=== PATIENT | female | born 1935 | race African-American/Black ===

== ENCOUNTER 2018-05-12 17:06 | Inpatient (IN) | payer MEDICARE, OTHER, MEDICAID ==
[2018-05-12] MEDS ORDERED: Magnesium 2 GM/NS 0.9% 100 ML 2 GM in Premix Bag 1 BAG IVPB SCH (18:15)
[2018-05-12 18:49] LABS: Bilirubin Negative (Negative); Blood, Urine Negative (Negative); Clarity CLEAR (Clear); Glucose, Urine (Dipstick) Negative (Negative); Leukocyte Negative (Negative); Nitrite Negative (Negative); Protein, Urine (Dipstick) Negative (Neg-Trace); Specific Gravity, Urine 1.008 (1.002-1.036); Urobilinogen 0.2 mg/dL (0.2-1.0); pH, Urine 6.5 (5.0-9.0)
--- NOTE | 2018-05-12 19:45 | RAD ---
ONE VIEW PELVIS: HISTORY: Pain. COMPARISON: None. FINDINGS: Limited evaluation of the sacral ala. Grossly, the sacral ala are intact. The sacroiliac joints are patent and symmetric. The bony pelvis is intact. Moderate bilateral degenerative changes of the hi ps. The contour of both femoral heads is maintained on this single projection. IMPRESSION: Unremarkable anterior-posterior pelvic radiograph. POS: PPP
--- NOTE | 2018-05-12 19:46 | RAD ---
RIGHT HIP TWO VIEWS: HISTORY: Pain. COMPARISON: None. FINDINGS: Mild degenerative change in the hip joint space. The contour of the femoral head is maintained. No fracture. There is diffuse bone demineralization. IMPRESSION: Unremarkable two views right hip. POS: PPP
[2018-05-12] MEDS ORDERED: Diltiazem 125 MG in Sodium Chloride 0.9% 100 ML IVPB SCH (20:15)
[2018-05-12] MEDS ORDERED: Ondansetron ODT 4 MG TAB SL PRN (23:07)
[2018-05-12] MEDS ORDERED: Sodium Chloride 0.9% 1,000 ML IV SCH (23:07)
[2018-05-12] MEDS ORDERED: Ondansetron HCl/PF 4 MG/2 ML Vial IVP PRN (23:07)
[2018-05-13 01:39] VITALS: BMI 27.2
[2018-05-13] MEDS ORDERED: Aspirin 325 mg Enteric Coated Tablet PO SCH (06:00)
[2018-05-13] MEDS ORDERED: Atropine Sulfate 1 mg/1 ml Vial IVP PRN (08:05)
[2018-05-13 08:59] LABS: Anion Gap 13 mmol/L (10-20); BUN (Urea Nitrogen) 15 mg/dL (9.8-20.1); Calc. Creatinine Clearance 38 mL/min (70-130); Calcium 9.3 mg/dL (7.8-10.44); Carbon Dioxide 23 mmol/L (23-31); Chloride 107 mmol/L (98-107); Estimated GFR-MDRD 43; Glucose 109 mg/dL (83-110); Magnesium 2.9 mg/dL (1.6-2.6); Phosphorus 2.9 mg/dL (2.3-4.7); Potassium 4.3 mmol/L (3.5-5.1); Sodium 139 mmol/L (136-145)
[2018-05-13] MEDS ORDERED: Prevnar 13-Val Conj/PF 0.5 ML SYRINGE IM ONE (09:00)
[2018-05-13] MEDS ORDERED: Ondansetron ODT 4 MG TAB PO PRN (09:58)
[2018-05-13] MEDS ORDERED: Nitroglycerin 0.4 MG TAB (25 Tab Bottle) PO PRN (09:58)
[2018-05-13] MEDS ORDERED: Ondansetron HCl/PF 4 MG/2 ML Vial IVP PRN (09:58)
[2018-05-13] MEDS ORDERED: Acetaminophen 325 MG TAB PO PRN (09:58)
[2018-05-13] MEDS ORDERED: Calcium Carbonate 500 MG ChewTAB PO PRN (09:58)
[2018-05-13] MEDS ORDERED: Milk Of Magnesia 30 ML UDCUP PO PRN (09:58)
[2018-05-13] MEDS ORDERED: hydrALAZINE 20 MG/ML VIAL SLOW IVP PRN (10:03)
[2018-05-13] MEDS ORDERED: HYDROcodone/Acetaminophen 5/325 mg Tablet PO PRN (10:03)
--- NOTE | 2018-05-13 10:10 | HP ---
DATE OF ADMISSION: 05/13/2018 PRIMARY CARE PHYSICIAN: Dr. Landry. CHIEF COMPLAINT: Right hip pain. HISTORY OF PRESENT ILLNESS: The patient is an 82-year-old -[place] female with hypertension, hyperlipidemia, coronary artery disease, status post CABG and dementia who presented to the emergenc y room at [facility] with right hip pain. Her workup in the emergency room was consistent with atrial fibrillation with rapid ventricular response. She was started on Lovenox as well as Cardizem drip. She was transferred to this facility for hospital admission. Due to underlying dementia, not much information is available from the patient. The patient thinks t hat she is still at home and is waiting for one of the family members to take her to the physician. She denies any complaints at this time. Right hip pain is resolved. She is asking for hydrocodone. PAST MEDICAL HISTORY: 1. Chronic pain syndrome. 2. Sick sinus syndrome. 3. Coronary artery disease, status post CABG in 1999. 4. Hypertension. 5. Hyperlipidemia. 6. Degenerative joint disease. 7. Depression. 8. Dementia. PAST SURGICAL HISTORY: 1. Hysterectomy. 2. Coronary artery bypass grafting. 3. Bladder repair. 4. Knee surgery. ALLERGIES: The patient is allergic to DARVOCET and VALSARTAN. CURRENT HOME MEDICATIONS: Per [employer], gabapentin 300 mg daily, hydralazine 10 mg b.i.d., [place] as needed, lisinopril 20 mg daily, Namenda 5 mg at bedtime. SOCIAL HISTORY: She currently lives at home. It is unclear who she lives with. She will remain a f ull code. We discussed with the surrogate decision maker about her code status. According to the fa ce sheet, Maggie Huertas is the DPOA. FAMILY HISTORY AND REVIEW OF SYSTEMS: Cannot be reliably obtained from the patient due to current co gnitive status. PHYSICAL EXAMINATION: VITAL SIGNS: At [facility], temperature 98.5, respiration 16, pulse rate of 159, blood pressure of 143 /117 with O2 saturation 97% on room air. GENERAL: An 82-year-old female in no apparent distress. Denies any chest discomfort at this time. HEENT: Head is atraumatic, normocephalic. Sclerae are anicteric. Moist mucous membrane, no oral le cruzito. NECK: Supple, no JVD, no carotid bruit. LUNGS: Clear to auscultation bilaterally. HEART: S1, S2 present. Irregularly irregular, 2/6 systolic murmur over the mitral area. No heaves or pulsation. ABDOMEN: Soft, nontender, bowel sounds present. EXTREMITIES: No edema or calf tenderness. SKIN: Warm and dry. LYMPH NODES: No palpable lymph nodes in the neck. NEUROLOGIC: The patient is spontaneously moving all 4 extremities and follows commands to some exten t. PSYCHIATRY: As discussed above. MUSCULOSKELETAL: No joint swelling or tenderness appreciated. LABORATORY DATA AND X-RAY FINDINGS: CBC showed WBC 6.4 with hemoglobin 11.6, hematocrit 35.6, platel et 341. Chemistry showed sodium 139, potassium 4.3, chloride 107, bicarbonate 23, BUN 15, creatinine 1.41. Magnesium of 2.5. Troponin was negative. BNP 65.5. X-ray of the hip was negative. Chest x -ray by my review was negative for infiltrate. EKG by my review showed atrial fibrillation with rapi d ventricular response, left axis deviation, left ventricular hypertrophy and nonspecific ST-T wave c hanges. IMPRESSION: 1. Atrial fibrillation with rapid ventricular response. Patient is currently off Cardizem drip due to significant bradycardia and sinus pause. Troponin is pending at this time. The patient will be k ept n.p.o. We will consult Cardiology. We will continue anticoagulation due to elevated CHADS2 scor e. The patient is at high risk of fall. 2. Right hip pain after a recent fall. We will try to obtain more information from the family. 3. Coronary artery disease, status post coronary artery bypass graft in the year 1999. We will add low dose aspirin. 4. Chronic pain syndrome. We will resume her home pain regimen. 5. Dementia. We will continue memantine. 6. Hypertension. We will continue lisinopril. 7. Chronic kidney disease stage 3. 8. Hyperlipidemia. Plan of care was discussed with the patient. We will try to call the family.
[2018-05-13 10:53] LABS: Troponin I Less than 0.010 ng/mL (< 0.028)
[2018-05-13] MEDS ORDERED: Aspirin 81 mg Enteric Coated Tablet PO SCH (11:00)
[2018-05-13] MEDS ORDERED: Gabapentin 300 MG CAP PO SCH (11:00)
[2018-05-13] MEDS: Sodium Chloride 0.9% 1,000 ML IV SCH (11:04)
--- NOTE | 2018-05-13 14:23 | CON ---
DATE OF CONSULTATION: 05/13/2018 CARDIOLOGY CONSULTATION NOTE INDICATION FOR CONSULTATION: An 82-year-old female with a history of new onset atrial fibrillation. However, she has had a history of atrial fibrillation in the past. HISTORY OF PRESENT ILLNESS: This is a very unfortunate 82-year-old female who still lives by herself , was at home and fell and had some pain to the right hip. She was taken to the hospital, the emerge ncy room and apparently there was no fracture, but she was found to have atrial fibrillation with rap id ventricular response. She was asymptomatic from a cardiac standpoint, but did notice that the hea rt was beating somewhat faster. She actually still maintains herself at home when she takes care of her horses. She is able to get around, but does have significant arthritis. She has had history of coronary artery disease in the past. She underwent bypass surgery in 1999 with MERIDA to left anterior descending artery, diagonal sequential graft and saphenous vein graft to the posterior lateral branc h and posterior descending arteries of the right coronary artery. Her last visit in the office was i n 2014 in April, this has been 3 years ago. At that time, she did not have any significant compl aints. She has had a negative stress test since her bypass surgery and otherwise has been doing rela tively well after her bypass. She does have a history also of some hypertension and dyslipidemia. T here is some mention in the old records that she does have some occasional atrial fibrillation and th is has been asymptomatic. At this time, she denied any chest pain. She does have occasional shortne ss of breath she says, but otherwise denies any other cardiac complaints. [facility] from atrial fibrillation after being given diltiazem. She did have an IV drip. She then converted to sinus rhythm. She also then developed pauses. She has had up to 3.7 second p ause. She has also been intermittently with some tachycardia, heart rate in the 160s. At this time, she is stable and remains in a sinus rhythm with heart rates in the 60s. Most likely, she has sick sinus syndrome and may need to undergo pacemaker insertion due to the pauses associated with the dilt iazem and the tachycardia associated with the atrial fibrillation. PAST MEDICAL HISTORY: Significant for coronary artery disease, hypertension, and dyslipidemia. She has had bypass surgery. She has a history of chronic renal insufficiency, hypercholesterolemia. She has obesity, arthritis. She has had left knee surgery, hysterectomy as well as her bypass surgery. ALLERGIES: She is allergic to PROPOXYPHENE. FAMILY HISTORY: Noncontributory. SOCIAL HISTORY: She lives alone. She has no alcohol or tobacco abuse. MEDICATIONS: At this time include Zofran, Tylenol, Neurontin, Lovenox 60 mg b.i.d., Colace, Milk of Magnesia, Namenda. She is on hydralazine as needed, nitroglycerin p.r.n., aspirin 81 mg a day. She is on pain medications, hydrocodone/acetaminophen. At home, she had been taking hydralazine, gabapen tin, hydrocodone/acetaminophen, lisinopril 20 mg once a day and memantine 5 mg q.p.m. REVIEW OF SYSTEMS: A 12 point review of systems unremarkable except what was noted in the history of present illness despite having arthritis and being able to still get around, she is doing remarkably well for 82 years old, but has now complained of some shortness of breath and occasionally she does feel the palpitations. PHYSICAL EXAMINATION: GENERAL: Reveals well-developed, well-nourished, elderly female who is actually in no acute distress at this time. She is alert and oriented. VITAL SIGNS: Stable. Her heart rate has been fluctuating between 40s to 80s, blood pressure 104/78, respiratory rate is about 16-18. She is afebrile. HEENT: Shows the head to be normocephalic and atraumatic. Carotid pulses are present. There were n o bruits. There is no JVD. The thyroid is not enlarged. Oral mucosa was pink and moist. CHEST: Clear to auscultation without any rales, rhonchi or wheezing. CARDIOVASCULAR: Exam reveals at this time a regular rate and rhythm with normal S1, S2. There are n o significant murmurs, heaves, thrills, bruits or rubs. She does have a very soft systolic murmur of the aortic area, most likely compatible with some aortic valve sclerosis. She has a well-healed mid line surgical incision after median sternotomy for her bypass surgery. ABDOMEN: Shows obesity with positive bowel sounds. No organomegaly, masses or tenderness are noted. EXTREMITIES: Showed no clubbing, cyanosis or edema. Femoral pulses are present. Pedal pulses are d ifficult to palpate. Popliteal pulses are slightly diminished. NEUROLOGIC: She appears to be fully intact with normal strength and normal tone for someone of her a ge. SKIN: Warm and dry. IMAGING DATA AND LABORATORY DATA: Her EKG originally showed atrial fibrillation with rapid ventricul ar response, but no acute ST segment changes that would indicate myocardial ischemia. She does have some evidence of left ventricular hypertrophy. She has decreased R-wave progression in V1 through V3 , which may be associated with her hypertension and left ventricular hypertrophy. Her laboratory lesley a shows creatinine of 1.41. Sodium was 139, potassium 4.3. Troponin I is negative. Hemoglobin is 1 1.6, WBC of 6.4. IMPRESSION: 1. Atrial fibrillation with associated bradycardia and tachycardia. This is a picture of sick sinus syndrome. She may need to undergo pacemaker insertion. I will discuss this with her later today in order that we can give her medications to prevent the atrial fibrillation also to decrease the heart rate and this most likely will be the best solution given her age and we will obtain an echocardiogr am, but previously she has had a normal ejection fraction. 2. History of coronary artery disease. She has had bypass surgery. This appears to be very stable. 3. Hypertension. This is under good control at this time. 4. Significant arthritis. This will be dealt with by the primary service. 5. Mild anemia. Most likely this is anemia of chronic disease and due to her aging process. 6. Chronic kidney disease. This is stable at this time. We would be more than happy to follow the patient with you, but most likely she will need to undergo pacemaker insertion.
[2018-05-13] MEDS: Docusate 100 MG CAP PO SCH (21:04)
[2018-05-13] MEDS: Famotidine 20 MG TAB PO SCH (21:05)
[2018-05-13] MEDS: Enoxaparin Sodium 60 MG/0.6 ML SYRINGE SC SCH (21:05)
[2018-05-14] MEDS: Sodium Chloride 0.9% 1,000 ML IV SCH ×2 (03:27→17:33)
[2018-05-14 05:58] LABS: #Eosinphils 0.4 thou/uL (0.0-0.7); #Lymphocytes 1.9 thou/uL (1.20-3.40); #Monocytes 0.4 thou/uL (0.11-0.59); #Neutrophils 2.8 thou/uL (1.40-6.50); %Basophils 0.6 % (0.0-1.0); %Eosinophils 6.4 % (0.0-10.0); %Lymphocytes 35.3 % (21.0-51.0); %Monocytes 7.6 % (0.0-10.0); %Neutrophils 50.1 % (42.0-75.0); Hemoglobin 11.1 g/dL (12.0-16.0); Mean Corpuscular HGB CONC 32.5 g/dL (32.0-36.0); Mean Corpuscular Hemoglobin 30.8 pg (27.0-31.0); Mean Corpuscular Volume 94.9 fL (78.0-98.0); Mean Platelet Volume 8.4 fL (7.4-10.4); Platelet Count 281 thou/uL (130-400); RBC Distribution Width 11.9 % (11.5-14.5); White Blood Cell (WBC) Count 5.5 thou/uL (4.8-10.8)
[2018-05-14 06:13] LABS: Anion Gap 11 mmol/L (10-20); BUN (Urea Nitrogen) 17 mg/dL (9.8-20.1); Calc. Creatinine Clearance 36 mL/min (70-130); Calcium 8.9 mg/dL (7.8-10.44); Carbon Dioxide 22 mmol/L (23-31); Chloride 108 mmol/L (98-107); Estimated GFR-MDRD 40; Glucose 90 mg/dL (83-110); Potassium 4.3 mmol/L (3.5-5.1); Sodium 137 mmol/L (136-145)
[2018-05-14] MEDS ORDERED: Aspirin 325 MG TAB PO SCH (09:00)
[2018-05-14] MEDS: Aspirin 81 mg Enteric Coated Tablet PO SCH (09:44)
[2018-05-14] MEDS: Docusate 100 MG CAP PO SCH ×2 (09:44→22:33)
[2018-05-14] MEDS: Enoxaparin Sodium 60 MG/0.6 ML SYRINGE SC SCH ×2 (09:45→18:16)
[2018-05-14] MEDS: Gabapentin 300 MG CAP PO SCH (09:45)
[2018-05-14] MEDS: Lisinopril 20 MG TAB PO SCH (09:46)
--- NOTE | 2018-05-14 11:51 | PDOC.PN ---
- Subjective Encounter Start Date: 05/14/18 Encounter Start Time: 11:49 Subjective: feels well. no chest pain?discomfort - Objective Resuscitation Status: Resuscitation Status FULL:Full Resuscitation MAR Reviewed: Yes Vital Signs & Weight: Vital Signs (12 hours) Temp Pulse Resp BP BP Pulse Ox 05/14/18 11:36 98.4 F 59 L 18 126/66 98 05/14/18 09:46 142/83 H 05/14/18 08:00 98.7 F 61 18 114/69 97 05/14/18 07:50 97 05/14/18 04:00 97.9 F 74 19 121/66 94 L 05/14/18 01:15 98.3 F 52 L 19 101/49 L 96 Weight Weight 168 lb 14.4 oz I&O: 05/13/18 05/14/18 05/15/18 06:59 06:59 06:59 Intake Total 240 Balance 240 Result Diagrams: 05/14/18 05:40 05/14/18 05:40 Additional Labs: Selected Entries 05/13/18 05/14/18 05/14/18 20:00 01:15 04:00 Pulse Rate 64 52 L 74 05/14/18 08:00 Pulse Rate 61 Laboratory Tests 02/03/18 04/19/18 05/12/18 22:06 12:45 14:28 Creatinine 1.24 H 1.37 H 1.36 H Troponin I TSH 3rd Generation 05/12/18 05/13/18 05/13/18 18:17 08:29 08:29 Creatinine 1.41 H Troponin I Less than 0.010 [facility] 3rd Generation [id number] 05/14/18 05:40 Creatinine 1.50 H Troponin I [facility] 3rd Generation Phys Exam - Physical Examination Constitutional: NAD HEENT: PERRLA, moist MMs, sclera anicteric, oral pharynx no lesions Neck: no nodes, no JVD, supple, full ROM Respiratory: no wheezing, no rales, no rhonchi, clear to auscultation bilateral Cardiovascular: RRR, no significant murmur, no rub Gastrointestinal: soft, non-tender, no distention, positive bowel sounds Musculoskeletal: no edema, pulses present Neurological: non-focal, normal sensation, moves all 4 limbs Psychiatric: normal affect, A&O x 3 Skin: no rash Dx/Plan (1) Sick sinus syndrome Code(s): I49.5 - SICK SINUS SYNDROME Status: Acute (2) CAD (coronary artery disease) Code(s): I25.10 - ATHSCL HEART DISEASE OF [place] CORONARY ARTERY W/O ANG PCTRS Status: Chronic (3) CKD (chronic kidney disease) stage 2, GFR 60-89 ml/min Code(s): N18.2 - CHRONIC KIDNEY DISEASE, STAGE 2 (MILD) Status: Chronic (4) HTN (hypertension) Code(s): I10 - ESSENTIAL (PRIMARY) HYPERTENSION Status: Chronic (5) HLD (hyperlipidemia) Code(s): E78.5 - HYPERLIPIDEMIA, UNSPECIFIED Status: Chronic (6) Arthritis Code(s): M19.90 - UNSPECIFIED OSTEOARTHRITIS, UNSPECIFIED SITE Status: Chronic (7) Chronic pain syndrome Code(s): G89.4 - CHRONIC PAIN SYNDROME Status: Chronic (8) Dementia Code(s): F03.90 - UNSPECIFIED DEMENTIA WITHOUT BEHAVIORAL DISTURBANCE Status: Chronic - Plan DVT proph w/SCDs PPM today> -: cont meds as below. HD stable. -: plan discussed w son at bedside -: Pt has impaired ADL/IDl and is fall risk.Impaired mobility -: Lives w family to assist.Will arrange wheelchair-clinically indicated * .She has walker but unable to use it due to advanced dementia ,severe de- conditioning and chronic pain. Review of Systems - Review of Systems Constitutional: negative: fever, chills, sweats, weakness, malaise, other ENT: negative: Ear Pain, Ear Discharge, Nose Pain, Nose Discharge, Nose Congestion, Mouth Pain, Mouth Swelling, Throat Pain, Throat Swelling, Other Respiratory: negative: Cough, Dry, Shortness of Breath, Hemoptysis, SOB with Excertion, Pleuritic Pain, Sputum, Wheezing Cardiovascular: negative: chest pain, palpitations, orthopnea, paroxysmal nocturnal dyspnea, edema, light headedness, other Gastrointestinal: negative: Nausea, Vomiting, Abdominal Pain, Diarrhea, Constipation, Melena, Hematochezia, Other Musculoskeletal: negative: Neck Pain, Shoulder Pain, Arm Pain, Back Pain, Hand Pain, Leg Pain, Foot Pain, Other Skin: negative: Rash, Lesions, Charlie, Bruising, Other Neurological: negative: Weakness, Numbness, Incoordination, Change in Speech, Confusion, Seizures, Other - Medications/Allergies Allergies/Adverse Reactions: Allergies Allergy/AdvReac Type Severity Reaction Status Date / Time propoxyphene Allergy Verified 05/13/18 02:44 valsartan Allergy Verified 05/13/18 02:44 Medications: Current Medications Acetaminophen (Tylenol) 650 mg PO Q4H PRN PRN Reason: Headache/Fever or Pain Last Admin: 05/13/18 16:38 Dose: 650 mg Aspirin (Ecotrin) 81 mg PO DAILY [facility] Last Admin: 05/14/18 09:44 Dose: 81 mg Atropine Sulfate (Atropine) 0.5 mg IVP ASDIR PRN PRN Reason: Sustained Bradycardia HR <30 Calcium Carbonate (Tums) 1,000 mg PO Q4H PRN PRN Reason: Heartburn or Indigestion Docusate Sodium (Colace) 100 mg PO BID [facility] Last Admin: 05/14/18 09:44 Dose: 100 mg Enoxaparin Sodium (Lovenox) 60 mg SC 0900,2100 [facility] Last Admin: 05/14/18 09:45 Dose: 60 mg Famotidine (Pepcid) 20 mg PO QPM [facility] Last Admin: 05/13/18 21:05 Dose: 20 mg Gabapentin (Neurontin) 300 mg PO DAILY [facility] Last Admin: 05/14/18 09:45 Dose: 300 mg Hydralazine HCl (Apresoline) 5 mg SLOW IVP Q4H PRN PRN Reason: SBP Greater Than 180 Sodium Chloride (Normal Saline 0.9%) 1,000 mls @ 70 mls/hr IV .[id number] [facility] Last Admin: 05/14/18 03:27 Dose: 1,000 mls Lisinopril (Zestril) 20 mg PO DAILY [facility] Last Admin: 05/14/18 09:46 Dose: 20 mg Magnesium Hydroxide (Milk Of Magnesium) 30 ml PO DAILYPRN PRN PRN Reason: Constipation Memantine (Namenda) 5 mg PO HS [facility] Last Admin: 05/13/18 21:05 Dose: 5 mg Nitroglycerin (Nitrostat) 0.4 mg PO Q5MIN PRN PRN Reason: Chest Pain Ondansetron HCl (Zofran Odt) 4 mg PO Q6H PRN PRN Reason: Nausea/Vomiting Ondansetron HCl (Zofran) 4 mg IVP Q6H PRN PRN Reason: Nausea/Vomiting Sodium Chloride (Flush - Normal Saline) 10 ml IVF Q12HR ANMOL Sodium Chloride (Flush - Normal Saline) 10 ml IVF PRN PRN PRN Reason: Saline Flush
[2018-05-14] MEDS: HYDROcodone/Acetaminophen 5/325 mg Tablet PO PRN (14:44)
[2018-05-14] MEDS: Famotidine 20 MG TAB PO SCH (22:33)
[2018-05-15] MEDS: Sodium Chloride 0.9% 1,000 ML IV SCH (06:57)
[2018-05-15] MEDS ORDERED: Lidocaine 1% (PF) 30 ML VIAL ONE (08:23)
[2018-05-15] MEDS ORDERED: Gentamicin 80 MG/2 ML VIAL ONE (08:23)
[2018-05-15] MEDS ORDERED: CEFAZOLIN 1 GM VIAL ONE (08:23)
[2018-05-15] MEDS ORDERED: CEFAZOLIN/Water 2 GM/20 ML SYRINGE ONE (08:23)
[2018-05-15] MEDS ORDERED: Midazolam HCl 2 mg/2 ml Vial ONE (09:25)
[2018-05-15] MEDS: Docusate 100 MG CAP PO SCH ×2 (10:57→21:40)
[2018-05-15] MEDS: Gabapentin 300 MG CAP PO SCH (10:57)
[2018-05-15] MEDS: Lisinopril 20 MG TAB PO SCH (10:57)
[2018-05-15] MEDS: Aspirin 81 mg Enteric Coated Tablet PO SCH (10:57)
[2018-05-15] MEDS: HYDROcodone/Acetaminophen 5/325 mg Tablet PO PRN (10:58)
[2018-05-15] MEDS: Enoxaparin Sodium 60 MG/0.6 ML SYRINGE SC SCH (11:10)
--- NOTE | 2018-05-15 11:30 | RAD ---
PORTABLE CHEST: HISTORY: Post pacemaker placement. COMPARISON: 05/12/18 study. FINDINGS: Heart size is enlarged with postop sternotomy change and a pacemaker. I do not see any signs of pneu mothorax. The lungs are clear of infiltrates. IMPRESSION: No evidence of pneumothorax post pacemaker placement. POS: PATTIE
--- NOTE | 2018-05-15 13:06 | CCL ---
CARDIAC PROCEDURE: INDICATION FOR PROCEDURE: This is an 82-year-old female with sick sinus syndrome. FINDINGS: She underwent the procedure today without difficulties or complications. She was implanted with a ch hira pacemaker from [employer] with 2 screw-in leads, one in the atrium and one in the ventricle. Th e pacemaker was set with the upper rate of 120, the lower rate was set at 60. She was implanted with a dual-chamber device. Two screw-in leads were placed. This is an MRI compatible device. There we re no difficulties or complications encountered. The full dictated note can be found in the chart. Cc: Dr. Hardy Garnett POS: Hank
--- NOTE | 2018-05-15 14:49 | PDOC.PN ---
- Subjective Encounter Start Date: 05/15/18 Encounter Start Time: 14:47 Subjective: feels very well.s/p Pacemaker earlier this morning - Objective Resuscitation Status: Resuscitation Status FULL:Full Resuscitation MAR Reviewed: Yes Vital Signs & Weight: Vital Signs (12 hours) Temp Pulse Resp BP BP Pulse Ox 05/15/18 12:00 98.3 F 61 18 138/73 93 L 05/15/18 10:57 152/82 H 05/15/18 10:32 98 F 98 16 129/64 96 05/15/18 07:54 97.7 F 64 20 153/71 H 100 05/15/18 04:00 97.9 F 81 18 136/76 97 Weight Weight 168 lb 14.4 oz I&O: 05/14/18 05/15/18 05/16/18 06:59 06:59 06:59 Intake Total 240 600 320 Balance 240 600 320 Result Diagrams: 05/14/18 05:40 05/14/18 05:40 Additional Labs: Laboratory Tests 04/19/18 05/12/18 05/13/18 12:45 14:28 08:29 Creatinine 1.37 H 1.36 H 1.41 H 05/14/18 05:40 Creatinine 1.50 H Phys Exam - Physical Examination Constitutional: NAD HEENT: PERRLA, moist MMs, sclera anicteric, oral pharynx no lesions Neck: no nodes, no JVD, supple, full ROM Respiratory: no wheezing, no rales, no rhonchi, clear to auscultation bilateral Cardiovascular: RRR, no significant murmur, no rub Gastrointestinal: soft, non-tender, no distention, positive bowel sounds Musculoskeletal: no edema, pulses present Neurological: non-focal, normal sensation, moves all 4 limbs Psychiatric: normal affect, A&O x 3 Skin: no rash Dx/Plan (1) Sick sinus syndrome Code(s): I49.5 - SICK SINUS SYNDROME Status: Acute Comment: s/p PPM 05/15/18 (2) CAD (coronary artery disease) Code(s): I25.10 - ATHSCL HEART DISEASE OF [place] CORONARY ARTERY W/O ANG PCTRS Status: Chronic (3) CKD (chronic kidney disease) stage 2, GFR 60-89 ml/min Code(s): N18.2 - CHRONIC KIDNEY DISEASE, STAGE 2 (MILD) Status: Chronic (4) HTN (hypertension) Code(s): I10 - ESSENTIAL (PRIMARY) HYPERTENSION Status: Chronic (5) HLD (hyperlipidemia) Code(s): E78.5 - HYPERLIPIDEMIA, UNSPECIFIED Status: Chronic (6) Arthritis Code(s): M19.90 - UNSPECIFIED OSTEOARTHRITIS, UNSPECIFIED SITE Status: Chronic (7) Chronic pain syndrome Code(s): G89.4 - CHRONIC PAIN SYNDROME Status: Chronic (8) Dementia Code(s): F03.90 - UNSPECIFIED DEMENTIA WITHOUT BEHAVIORAL DISTURBANCE Status: Chronic - Plan respiratory therapy, incentive spirometry, out of bed/ambulate, DVT proph w/SCDs clinically stable .monitor.restart diet ,meds -: OT/PT. -: Pt w advanced dementia & q of care at home post Dc.will consult palliative -: Dc IVF.SNIF eval * . Review of Systems - Review of Systems Constitutional: negative: fever, chills, sweats, weakness, malaise, other ENT: negative: Ear Pain, Ear Discharge, Nose Pain, Nose Discharge, Nose Congestion, Mouth Pain, Mouth Swelling, Throat Pain, Throat Swelling, Other Cardiovascular: negative: chest pain, palpitations, orthopnea, paroxysmal nocturnal dyspnea, edema, light headedness, other Gastrointestinal: negative: Nausea, Vomiting, Abdominal Pain, Diarrhea, Constipation, Melena, Hematochezia, Other Genitourinary: negative: Dysuria, Frequency, Incontinence, Hematuria, Retention , Other Musculoskeletal: negative: Neck Pain, Shoulder Pain, Arm Pain, Back Pain, Hand Pain, Leg Pain, Foot Pain, Other Neurological: negative: Weakness, Numbness, Incoordination, Change in Speech, Confusion, Seizures, Other - Medications/Allergies Allergies/Adverse Reactions: Allergies Allergy/AdvReac Type Severity Reaction Status Date / Time propoxyphene Allergy Verified 05/13/18 02:44 valsartan Allergy Verified 05/13/18 02:44 Medications: Current Medications Acetaminophen (Tylenol) 650 mg PO Q4H PRN PRN Reason: Headache/Fever or Pain Last Admin: 05/13/18 16:38 Dose: 650 mg Hydrocodone Bitart/Acetaminophen ([place] 5/325) 1 tab PO Q6H PRN PRN Reason: Pain Last Admin: 05/15/18 10:58 Dose: 1 tab Aspirin (Ecotrin) 81 mg PO DAILY [facility] Last Admin: 05/15/18 10:57 Dose: 81 mg Atropine Sulfate (Atropine) 0.5 mg IVP ASDIR PRN PRN Reason: Sustained Bradycardia HR <30 Calcium Carbonate (Tums) 1,000 mg PO Q4H PRN PRN Reason: Heartburn or Indigestion Docusate Sodium (Colace) 100 mg PO BID [facility] Last Admin: 05/15/18 10:57 Dose: 100 mg Famotidine (Pepcid) 20 mg PO QPM [facility] Last Admin: 05/14/18 22:33 Dose: 20 mg Gabapentin (Neurontin) 300 mg PO DAILY [facility] Last Admin: 05/15/18 10:57 Dose: 300 mg Hydralazine HCl (Apresoline) 5 mg SLOW IVP Q4H PRN PRN Reason: SBP Greater Than 180 Sodium Chloride (Normal Saline 0.9%) 1,000 mls @ 70 mls/hr IV .[id number] [facility] Last Admin: 05/15/18 06:57 Dose: Not Given Lisinopril (Zestril) 20 mg PO DAILY [facility] Last Admin: 05/15/18 10:57 Dose: 20 mg Magnesium Hydroxide (Milk Of Magnesium) 30 ml PO DAILYPRN PRN PRN Reason: Constipation Memantine (Namenda) 5 mg PO HS [facility] Last Admin: 05/14/18 22:34 Dose: 5 mg Metoprolol Succinate (Toprol Xl) 50 mg PO DAILY [facility] Nitroglycerin (Nitrostat) 0.4 mg PO Q5MIN PRN PRN Reason: Chest Pain Ondansetron HCl (Zofran Odt) 4 mg PO Q6H PRN PRN Reason: Nausea/Vomiting Ondansetron HCl (Zofran) 4 mg IVP Q6H PRN PRN Reason: Nausea/Vomiting Sodium Chloride (Flush - Normal Saline) 10 ml IVF Q12HR [facility] Last Admin: 05/15/18 11:01 Dose: Not Given Sodium Chloride (Flush - Normal Saline) 10 ml IVF PRN PRN PRN Reason: Saline Flush
--- NOTE | 2018-05-15 15:26 | EKG ---
Test Reason : POST PACEMAKER INSER Blood Pressure : / mmHG Vent. Rate : 060 BPM Atrial Rate : 357 BPM P-R Int : 000 ms QRS Dur : 078 ms QT Int : 410 ms P-R-T Axes : 000 067 116 degrees QTc Int : 410 ms Electronic atrial pacemaker Nonspecific ST and T wave abnormality , probably digitalis effect Abnormal ECG When compared with ECG of 12-MAY-2018 17:18, (Unconfirmed) Electronic atrial pacemaker has replaced Atrial fibrillation Vent. rate has decreased BY 43 BPM Minimal criteria for Inferior infarct are no longer Present Confirmed by LADY RATLIFF, DR. Bautista ([id number]) on 05/15/2018 3:26:18 PM Referred By: JOSUÉ Confirmed By:DR. Lily NARAYANAN MD
[2018-05-15] MEDS: Famotidine 20 MG TAB PO SCH (21:40)
[2018-05-16] MEDS ORDERED: Acetaminophen/Codeine 30-300mg Tablet PO PRN ×2 (03:57→03:58)
[2018-05-16] MEDS: Lisinopril 20 MG TAB PO SCH (10:03)
--- NOTE | 2018-05-16 10:03 | PDOC.CTH ---
Cardiology Progress Note - Subjective The pt seen and examined. No overnight events. No cardiac complaints. She is exercising with PTs now. - Objective Vital Signs Temp Pulse Resp BP Pulse Ox 05/16/18 07:41 99.1 F 62 18 150/79 H 95 05/16/18 04:00 98 F 61 16 110/74 97 05/16/18 00:00 98.7 F 60 16 147/71 H 97 Weight 168 lb 14.4 oz 05/15/18 05/16/18 05/17/18 06:59 06:59 06:59 Intake Total 600 1960 Balance 600 1959 - Physical Examination General/Neuro: other: (confused) Neck: carotid US brisk Lungs: CTA Heart: RRR Abdomen: soft Extremities: other: (No edema) - Telemetry Telemetry Rhythm: A paced with HR 60s - Labs Result Diagrams: 05/14/18 05:40 05/14/18 05:40 Troponin/CKMB Troponin I Less than 0.010 ng/mL (< 0.028) 05/13/18 08:29 - Assessment/Plan 1. SSS with s/p PM placement on 05/15/18 - Apaced; the PM site is [employer], no drainage or erythema, and mild swelling; 2. HTN - stable 3. CAD with hx of CABG in 1999- stable with BBlokcer, ESTEPHANIA, and ASA. 4. Hx of Paroxysmal Afib - HR well controlled with Metoprolol and ASA. She is high risk of fall and dementia 5. CKD - stable 6. Arthritis - exercising with PT MAR reviewed * From Cardiac standpoint, the pt is stable to d/c home/NH. The pt will f/u with Dr Aldrich' office within 7-10 days for site check by nurse and initial PM check within [address] Aldrich' office. Review of Systems - Review of Systems Constitutional: reports: weakness EENTM: reports: no symptoms reported Respiratory: reports: no symptoms reported Cardiac (ROS): reports: no symptoms reported ABD/GI: reports: no symptoms reported : reports: no symptoms reported Musculoskeletal: reports: joint pain Skin: reports: no symptoms reported
[2018-05-16] MEDS: Aspirin 81 mg Enteric Coated Tablet PO SCH (10:04)
[2018-05-16] MEDS: Gabapentin 300 MG CAP PO SCH (10:04)
[2018-05-16] MEDS: Docusate 100 MG CAP PO SCH (10:04)
[2018-05-16 11:21] VITALS: BP 148/88; TEMP 99
--- NOTE | 2018-05-16 14:15 | DIS ---
DATE OF ADMISSION: 05/12/2018 DATE OF DISCHARGE: 05/16/2018 CONDITION AT THE TIME OF DISCHARGE: Stable and improved. DISCHARGE DISPOSITION: Home with [facility]. PRIMARY CARE PHYSICIAN: Onel Landry M.D. DISCHARGE DIAGNOSES: 1. Sick sinus syndrome, status post pacemaker placement on 05/15/2018, A paced. 2. Hypertension. 3. History of coronary artery disease with CABG in 1999. 4. History of paroxysmal atrial fibrillation, stable on metoprolol and aspirin. 5. Chronic kidney disease. 6. Arthritis. 7. Dementia. 8. Chronic pain syndrome. 9. Chronic debilitated state and deconditioning. DISCHARGE MEDICATIONS: Aspirin 81 mg daily, Toprol-XL 50 mg daily, memantine 1 tablet at bedtime, ga bapentin 300 mg daily, lisinopril 20 mg daily. DISCONTINUED MEDICATIONS: Hydralazine. PROCEDURES DONE IN THE HOSPITAL: 1. X-ray of the hip and pelvis upon presentation, which both of them are unremarkable. No fractures noticed. 2. Placement of a permanent A paced pacemaker, 05/15/2018. 3. Transthoracic echocardiogram, 05/15/2018, which is EF of 60% to 65% without any significant valvu lar abnormality. CONSULTATIONS INHOUSE: Cardiology, Dr. Heath Aldrich. HISTORY OF PRESENT ILLNESS: Ms. Huertas is an 82-year-old female with history of chronic pain, demen tia, sick sinus syndrome, coronary artery disease, hypertension, and dyslipidemia who presented to [facility] emergency room with complaints of right-sided hip pain. Workup in the ER was consistent with atria l fibrillation with RVR and she was started on Lovenox and Cardizem drip and was admitted for further evaluation. By the time of admission, the patient was off of the Cardizem drip due to significant bradycardia and sinus pauses that she developed quickly. Cardiology was consulted and she was kept n.p.o. and antic oagulation was continued. Please see admission history and physical for further details. HOSPITAL COURSE: The patient was seen by Dr. Aldrich in the next morning and underwent a pacemaker plac ement as recommended for possible sick sinus syndrome. She tolerated the procedure very well. She w as taken off of anticoagulation given her advanced dementia, fall risk and chronic debility. She was started on aspirin as well as beta angela and was continued on the same. Hydralazine was stopped a nd lisinopril was continued. The patient was monitored overnight and by this morning she was ready to go home. Options for rehabi litation were provided to the family, but there is a huge discord between multiple family members wit bakari anybody specifically appointed medical power of deputy county attorney. Due to the dispute, palliative care mo costa was involved and the main care provider for the patient, her son, Mr. Hunter decided that he would rather have the mom go to home with home health. This was arranged and she was discharged with her son home under stable condition. She has been cleared by Cardiology for discharge as well. Discharg e plan was discussed with the son in the room at bedside and with the patient who verbalized understa nding. Prescriptions were provided. The patient was seen and examined prior to discharge. She has no new complaints and feels very well. PHYSICAL EXAMINATION: This morning; VITAL SIGNS: Temperature 99, heart rate 60, respirations 20, saturating 95% on room air, blood press ure 148/88. GENERAL: In no acute distress, awake, alert, oriented x3. CHEST: Clear to auscultation bilaterally. Rate and rhythm regular. Pacemaker insertion site is wit bakari any dehiscence or discharge and looks clean and healthy. They are instructed to follow up with primary care physician in 1-2 weeks and Cardiology in 2-3 weeks . Total time spent in the discharge of this patient 35 minutes.
== END 2018-05-16 13:05 | disposition home health service (06) | DRG 244 ==
LOC: ERS 17:06 → 2SE 22:53
PROVIDERS: ADMIT Internal Medicine; ATTEND Internal Medicine
PROC: 0JH606Z Insertion of Pacemaker, Dual Chamber into Chest Subcutaneous Tissue and Fascia, Open Approach (ICD-10-PCS; principal; 2018-05-15)
PROC: 02H63JZ Insertion of Pacemaker Lead into Right Atrium, Percutaneous Approach (ICD-10-PCS; 2018-05-15)
PROC: 02HK3JZ Insertion of Pacemaker Lead into Right Ventricle, Percutaneous Approach (ICD-10-PCS; 2018-05-15)
DX: I49.5 Sick sinus syndrome (principal); I48.0 Paroxysmal atrial fibrillation; M25.551 Pain in right hip; I12.9 Hypertensive chronic kidney disease with stage 1 through stage 4 chronic kidney disease, or unspecified chronic kidney disease; N18.3 Chronic kidney disease, stage 3 (moderate); I25.10 Atherosclerotic heart disease of native coronary artery without angina pectoris; G89.4 Chronic pain syndrome; D63.1 Anemia in chronic kidney disease; F03.90 Unspecified dementia, unspecified severity, without behavioral disturbance, psychotic disturbance, mood disturbance, and anxiety; M19.90 Unspecified osteoarthritis, unspecified site; E78.00 Pure hypercholesterolemia, unspecified; F32.9 Major depressive disorder, single episode, unspecified; E66.9 Obesity, unspecified; Z95.1 Presence of aortocoronary bypass graft; Z88.8 Allergy status to other drugs, medicaments and biological substances; Z68.27 Body mass index [BMI] 27.0-27.9, adult; W19.XXXA Unspecified fall, initial encounter; Y92.009 Unspecified place in unspecified non-institutional (private) residence as the place of occurrence of the external cause
CPT/HCPCS: 33230; 36415; 71045; 72170; 80048; 81003; 83735; 84100; 84443; 84484; 85025; 90471; 90670; 93005; 93010; 93306; 93798; 96365; 96366; 96368; 99152; 99153; A4216; C1785; C1898; G0009; G8978-GP-CM; G8979-GP-CK; G8987-GO-CL; G8988-GO-CJ; J0690; J1580; J1650; J2001; J2250; J3475

== ENCOUNTER 2018-09-26 09:46 | Inpatient (IN) | payer MEDICARE, OTHER, MEDICAID ==
[2018-09-26 11:37] LABS: Troponin I 0.036 ng/mL (< 0.028)
--- NOTE | 2018-09-26 12:19 | HP ---
PRIMARY CARE PHYSICIAN: Dr. Nico Barton. REASON FOR ADMISSION: Transferred from [facility] for atrial fibrillation with RVR. HISTORY OF PRESENT ILLNESS: An 82-year-old female, who has underlying history of atrial fibrillation, who presented to [place] [facility] with complaint of increasing shortness of breath and palpitation. Over there, the patient was found with atrial fibrillation with rapid ventricular response. She was having associated mild chest tightness and shortness of breath. She was also having mild cough without any sputum. She was feeling nauseated. She was feeling weak and dizzy, and that is why family member brought her to emergency room for evaluation. The patient was found with atrial fibrillation with RVR. She was given Cardizem drip. She was also given Lovenox 1 mg/kg. Aspirin was also given, and subsequently, this patient was transferred to our hospital for further evaluation and treatment. Initially, her heart rate was in 150s, and currently even with Cardizem drip, the patient's heart rate is still variable, and the patient is overall feeling better than when she presented to [facility]. Currently, she denies any orthopnea, PND, or leg swelling. She denies any chest pain or palpitation. Her monitor is still showing atrial fibrillation with RVR, currently on Cardizem drip at 15 mg/hour. The patient denies any fever or chills. She denies any recent upper or lower respiratory infections. She denies any excessive caffeinated products. She denies any constipation, diarrhea, melena, or hematochezia. REVIEW OF SYSTEMS: CONSTITUTIONAL: Negative for weight loss or gain, ability to conduct usual activities. SKIN: Negative for rash, itching. EYES: Negative for double vision, pain. ENT/MOUTH: Negative for nose bleeding, neck stiffness, pain, tenderness. CARDIOVASCULAR: Negative for palpitations, dyspnea on exertion, orthopnea. RESPIRATORY: Negative for shortness of breath, wheezing, cough, hemoptysis, fever or night sweats. GASTROINTESTINAL: Negative for poor appetite, abdominal pain, heartburn, nausea, vomiting, constipation, or diarrhea. GENITOURINARY: Negative for urgency, frequency, dysuria, nocturia. MUSCULOSKELETAL: Negative for pain, swelling. NEUROLOGIC/PSYCHIATRIC: Negative for anxiety, depression. ALLERGY/IMMUNOLOGIC: Negative for skin rash, bleeding tendency. Please see my HPI for pertinent positives and negatives. All other review of systems reviewed and negative except as mentioned in HPI. Above-mentioned review of system is not reliable because the patient has underlying dementia. PAST MEDICAL HISTORY: Coronary artery disease with history of CABG in 1999; history of sick sinus syndrome, treated with pacemaker; hypertension; dyslipidemia; osteoarthritis; Alzheimer's type of dementia; chronic pain disorder. PAST PSYCHIATRIC HISTORY: Anxiety and depression. PAST SURGICAL HISTORY: CABG in 1999, bladder repair, knee surgery, hysterectomy. ALLERGIES: DARVOCET AND LOSARTAN. SOCIAL HISTORY: The patient currently lives at home with her son. No history of tobacco, alcohol, or illicit drug abuse. FAMILY HISTORY: No strong family history of coronary artery disease, stroke, or cancer. CURRENT HOME MEDICATIONS: Based on our most recent hospital discharge, the patient was on following medication; 1. Gabapentin 300 mg p.o. daily. 2. Lisinopril 20 mg p.o. daily. 3. Namenda 5 mg p.o. at bedtime. 4. Aspirin 81 mg p.o. daily. 5. Toprol-XL 50 mg p.o. daily. EMERGENCY ROOM COURSE: The patient is given aspirin, Lovenox 1 mg/kg, Cardizem bolus and subsequently Cardizem drip. PHYSICAL EXAMINATION: VITAL SIGNS: Currently, blood pressure 161/100, pulse 104 and irregular, respiratory rate 18, temperature 98.2, and saturation 95% on room air. Weight 85.7 kg. GENERAL: The patient is currently alert, awake, hypertensive. No obvious acute distress. HEENT: Head, normocephalic and atraumatic. Eyes; pupils are round, reactive to light. Extraocular muscle intact. ENT, oropharynx within normal limits. Moist mucous membranes. No oral lesion. No pharyngeal erythema. No exudate. NECK: Supple. No JVD. No thyromegaly. No carotid bruit. LUNGS: Clear to auscultation without any obvious rhonchi or rales. CARDIAC: S1 and S2, irregularly irregular. No murmur elicited. No gallop. No rub. ABDOMEN: Soft. Bowel sounds are present. Nontender. Nondistended. No organomegaly. No mass. No suprapubic tenderness. BACK: Unremarkable. No CVA tenderness. EXTREMITIES: Upper extremities, passive movement of all joints are normal. Lower extremity, trace lower extremity edema noted. Good distal pulsation. SKIN: No skin rash. HEMATOLOGIC: No lymphadenopathy. NEUROLOGIC: She is moving all 4 limbs. Speech is intact. Grossly nonfocal neurological examination. PSYCHIATRIC: Normal affect. SIGNIFICANT LABORATORY DATA: EKG on admission showed atrial fibrillation with rapid ventricular response. Chest x-ray is showing cardiomegaly. CBC; WBC 12.9, hemoglobin 12.0, and platelet 208. INR 1.0. BMP; sodium 140, potassium 4.0, chloride 104, carbon dioxide 23, BUN 26, creatinine 1.45, glucose 134, calcium 10.3. LFT; AST 28, ALT 19, alkaline phosphatase 84, albumin 4.2. CK 181, troponin 0.022, BNP 244.5. Urinalysis, proteinuria. ASSESSMENT AND PLAN: 1. Atrial fibrillation with rapid ventricular response. The patient does have paroxysmal atrial fibrillation, and currently, she has rapid ventricular response despite Cardizem drip. At this point, precipitating trigger is not know. The patient will need chronic anticoagulation and we will defer to Cardiology. We will start at least Lovenox 1 mg/kg while in hospital, and if Cardiology agrees, then we will consider Eliquis therapy on discharge for chronic anticoagulation. We will monitor on telemetry floor. We will continue Cardizem drip and further treatment will defer to Cardiology. 2. Hypertension. We will continue lisinopril 20 mg p.o. daily, Toprol-XL 50 mg p.o. daily. 3. Alzheimer dementia. We will continue Namenda 5 mg p.o. at bedtime. 4. Chronic pain disorder. We will continue gabapentin 300 mg p.o. daily. 5. Deep venous thrombosis prophylaxis. The patient is already kept on Lovenox 1 mg/kg while in hospital. 6. Elevated BNP, likely due to chronic diastolic heart failure from atrial fibrillation. 7. Chronic kidney disease, stage 3. We will monitor renal function. Avoid nephrotoxic agent. 8. Asymptomatic bacteriuria. We will send urine culture. We will hold on antibiotic therapy at this point. DISPOSITION PLAN: Based on clinical course while in hospital, we will continue with PT, OT, and subsequently, if stable, then the patient will be discharged to home versus placement depending upon clinical course. Plan of care discussed with the patient's son on phone. Job ID: [id number]
[2018-09-26] MEDS ORDERED: Eucerin (Mineral Oil/Petrolatum,White) 30 gm Jar TOP PRN (13:36)
[2018-09-26] MEDS ORDERED: Diabetic Tussin 200 MG/10 ML UDCUP PO PRN (13:36)
[2018-09-26] MEDS ORDERED: Calcium Carbonate 500 MG ChewTAB PO PRN (13:36)
[2018-09-26] MEDS ORDERED: Ondansetron ODT 4 MG TAB PO PRN (13:36)
[2018-09-26] MEDS ORDERED: hydrALAZINE 20 MG/ML VIAL SLOW IVP PRN (13:36)
[2018-09-26] MEDS ORDERED: Ondansetron PF 4 MG/2 ML Vial IVP PRN (13:36)
[2018-09-26] MEDS ORDERED: Diltiazem 125 MG in Sodium Chloride 0.9% 100 ML IVPB SCH (13:36)
[2018-09-26] MEDS ORDERED: Cepastat Lozenges 1 LOZ PO PRN (13:36)
[2018-09-26] MEDS ORDERED: Sodium Chloride 0.65% Nasal 44 ML BOT EA NARE PRN (13:36)
[2018-09-26] MEDS ORDERED: Nitroglycerin 0.4 MG TAB (25 Tab Bottle) SL PRN (13:36)
[2018-09-26] MEDS ORDERED: Bisacodyl 5 MG TAB PO PRN (13:36)
[2018-09-26] MEDS ORDERED: Labetalol HCl 100 MG/20 ML VIAL SLOW IVP PRN (13:36)
[2018-09-26] MEDS ORDERED: Loperamide HCl 2 MG CAP PO PRN (13:36)
[2018-09-26] MEDS ORDERED: Bisacodyl 10 MG SUPP PR PRN (13:36)
[2018-09-26] MEDS ORDERED: Senokot S 8.6-50 MG TAB PO PRN (13:36)
[2018-09-26] MEDS ORDERED: Loratadine 10 MG TAB PO PRN (13:36)
[2018-09-26] MEDS ORDERED: Artificial Tears 18 DROP/0.9 ML EA EYE PRN (13:36)
[2018-09-26] MEDS ORDERED: Zolpidem Tartrate 5 MG TAB PO PRN (13:36)
[2018-09-26] MEDS ORDERED: Acetaminophen 325 MG TAB PO PRN (13:36)
[2018-09-26 13:42] VITALS: BMI 30.4
[2018-09-26 20:16] LABS: Troponin I 0.087 ng/mL (< 0.028)
[2018-09-26] MEDS: Famotidine 20 MG TAB PO SCH (21:23)
[2018-09-26] MEDS: Enoxaparin Sodium 80 MG/0.8 ML SYRINGE SC SCH (21:23)
[2018-09-27 06:58] LABS: #Eosinphils 0.2 thou/uL (0.0-0.7); #Monocytes 0.6 thou/uL (0.11-0.59); #Neutrophils 4.1 thou/uL (1.40-6.50); %Basophils 0.5 % (0.0-1.0); %Eosinophils 3.4 % (0.0-10.0); %Lymphocytes 28.4 % (21.0-51.0); %Monocytes 8.1 % (0.0-10.0); %Neutrophils 59.6 % (42.0-75.0); Mean Corpuscular Hemoglobin 31.6 pg (27.0-31.0); Mean Corpuscular Volume 95.9 fL (78.0-98.0); Mean Platelet Volume 8.8 fL (7.4-10.4); Platelet Count 184 thou/uL (130-400); Red Blood Cell (RBC) Count 3.16 mill/uL (4.20-5.40); White Blood Cell (WBC) Count 6.9 thou/uL (4.8-10.8)
[2018-09-27 07:02] LABS: ALT (SGPT) 10 U/L (8-55); AST (SGOT) 18 U/L (5-34); Albumin 3.2 g/dL (3.4-4.8); Alkaline Phosphatase 67 U/L (40-150); Anion Gap 11 mmol/L (10-20); BUN (Urea Nitrogen) 28 mg/dL (9.8-20.1); Bilirubin, Total 0.8 mg/dL (0.2-1.2); Calc. Creatinine Clearance 35 mL/min (70-130); Calcium 9.3 mg/dL (7.8-10.44); Carbon Dioxide 27 mmol/L (23-31); Chloride 107 mmol/L (98-107); Estimated GFR-MDRD 38; Globulin 2.8 g/dL (2.4-3.5); Glucose 94 mg/dL (83-110); Potassium 4.9 mmol/L (3.5-5.1); Sodium 140 mmol/L (136-145)
[2018-09-27] MEDS: Enoxaparin Sodium 80 MG/0.8 ML SYRINGE SC SCH ×2 (07:59→20:21)
[2018-09-27] MEDS: Lisinopril 20 MG TAB PO SCH (07:59)
[2018-09-27] MEDS: Gabapentin 300 MG CAP PO SCH (08:00)
[2018-09-27] MEDS: Famotidine 20 MG TAB PO SCH ×2 (08:00→20:21)
[2018-09-27] MEDS: Aspirin Chewable 81 MG TAB PO SCH (08:00)
[2018-09-27] MEDS ORDERED: Dronedarone HCl 400 MG TAB PO SCH (10:15)
--- NOTE | 2018-09-27 11:21 | CON ---
DATE OF CONSULTATION: HISTORY: Rosalia Huertas is an 82-year-old white female along followed by Dr. Aldrich, admitted with atrial fibrillation. In 2001, she underwent CABG x4 with MERIDA to the LAD and diagonal sequentially and saphenous vein graft to the posterolateral branch and the posterior descending branches of the right coronary artery. She previously had episodes of atrial fibrillation. She presented in April 2018 with atrial fibrillation and was started on intravenous Cardizem. She converted to sinus rhythm but then developed pauses up to 3.7 seconds. It was felt that she had sick sinus syndrome, and ultimately a pacemaker was placed. She was placed on metoprolol. She was seen in followup in the office on May 28, 2018, and was doing well at that time. She now is admitted with atrial fibrillation with fast ventricular response with a rate of 151 per minute on EKG. On interrogation of her pacemaker, it was also seen that she had a prolonged episode of atrial fibrillation on June 29. The patient states that she was aware that day that her heart was beating rapidly, but she never sought medical attention. She then yesterday again had feeling of chest heaviness and her heart beating very rapidly. She came to the emergency room, was in atrial fibrillation with fast ventricular response and was given intravenous Cardizem and has since converted to sinus rhythm or atrial pacing. PAST MEDICAL HISTORY: Coronary artery disease, hypertension, hyperlipidemia, renal insufficiency, arthritis, sick sinus syndrome, and Alzheimer's dementia. OPERATIONS: CABG in 1999, pacemaker placement in 2017, knee surgery, hysterectomy, and bladder repair. MEDICATIONS: 1. Metoprolol ER 50 mg q.a.m. 2. Gabapentin 300 mg daily. 3. Lisinopril 20 daily. 4. Namenda 5 mg at bedtime. 5. Aspirin 81 daily. ALLERGIES: PROPOXYPHENE. SOCIAL HISTORY: She does not smoke or drink. REVIEW OF SYSTEMS: Twelve-point review of systems is unremarkable. PHYSICAL EXAMINATION: VITAL SIGNS: Blood pressure 142/65, pulse of 65. HEENT: PERRL. NECK: Supple. CHEST: Clear. CARDIAC: S1 and S2 normal without any S3 or S4. There is a 2/6 systolic ejection murmur along the left upper sternal border. ABDOMEN: Normal bowel sounds without tenderness or organomegaly. EXTREMITIES: Revealed no clubbing, cyanosis, or edema. NEUROLOGIC: Grossly intact. SKIN: Warm and dry. LABORATORY DATA: EKG revealed atrial fibrillation with fast ventricular response with nonspecific ST and T-wave changes. Hemoglobin 10.0, hematocrit 30.3, white count 6900, and platelets 184,000. INR 1.0. Sodium 140, potassium 4.9, chloride 107, carbon dioxide 27, BUN 28, and creatinine 1.58. Troponin I is up to 0.087. IMPRESSION: 1. Paroxysmal atrial fibrillation with approximately 7-hour episode on June 29 and now with over a 5-hour episode. In the past, it was felt that she was not a candidate for anticoagulation due to difficulty walking and fear that she may fall. 2. Status post coronary artery bypass grafting x4 in 1999. 3. Hypertension. 4. Hypercholesterolemia. 5. Sick sinus syndrome, status post pacemaker placement. 6. Chronic kidney disease. 7. Alzheimer's disease. 8. Arthritis. 9. Mild aortic stenosis, on last echocardiogram in April 2018. PLAN: It has been felt in the past that Ms. Huertas is not a candidate for chronic anticoagulation. Now with her second documented prolonged episode of atrial fibrillation, I feel it would be in her best interest to try to suppress her atrial fibrillation. She will be started on Multaq 400 mg b.i.d. If she continues to remain in normal sinus rhythm, then I feel she may be discharged tomorrow and follow up with Dr. Aldrich as an outpatient. Job ID: [id number]
--- NOTE | 2018-09-27 13:00 | PDOC.PN ---
- Subjective Encounter Start Date: 09/27/18 Encounter Start Time: 07:45 -: old records requested/rev pt has rate controlled, she is doing well, Patient seen and examined. No new complaints. No overnight events - Objective Resuscitation Status - Order Detail: 09/26/18 11:29 Resuscitation Status Routine Resuscitation Status: FULL: Full Resuscitation MAR Reviewed: Yes Vital Signs & Weight: Vital Signs (12 hours) Temp Pulse Resp BP Pulse Ox 09/27/18 10:45 97.5 F L 75 16 125/60 99 09/27/18 07:37 98.7 F 65 16 142/65 H 97 09/27/18 04:00 98.3 F 59 L 16 119/55 L 97 Weight Weight 177 lb 4.8 oz I&O: 09/26/18 09/27/18 09/28/18 06:59 06:59 06:59 Intake Total 240 240 Balance 240 240 Result Diagrams: 09/27/18 06:01 09/27/18 06:01 EKG Reviewed by me: Yes (afib) Phys Exam - Physical Examination Constitutional: NAD HEENT: PERRLA, moist MMs, sclera anicteric Neck: no JVD, supple Respiratory: no wheezing, no rales, no rhonchi Cardiovascular: no significant murmur, irregular Gastrointestinal: soft, non-tender, no distention, positive bowel sounds Musculoskeletal: no edema, pulses present Neurological: non-focal, normal sensation, moves all 4 limbs Lymphatic: no nodes Psychiatric: normal affect Skin: no rash, normal turgor Dx/Plan (1) Atrial fibrillation with RVR Code(s): I48.91 - UNSPECIFIED ATRIAL FIBRILLATION Status: Acute Comment: controlled (2) Demand ischemia Code(s): I24.8 - OTHER FORMS OF ACUTE ISCHEMIC HEART DISEASE Status: Acute (3) Anemia, normocytic normochromic Code(s): D64.9 - ANEMIA, UNSPECIFIED Status: Chronic (4) Arthritis Code(s): M19.90 - UNSPECIFIED OSTEOARTHRITIS, UNSPECIFIED SITE Status: Chronic (5) CAD (coronary artery disease) Code(s): I25.10 - ATHSCL HEART DISEASE OF [place] CORONARY ARTERY W/O ANG PCTRS Status: Chronic (6) CKD (chronic kidney disease) stage 3, GFR 30-59 ml/min Code(s): N18.3 - CHRONIC KIDNEY DISEASE, STAGE 3 (MODERATE) Status: Chronic (7) Chronic pain syndrome Code(s): G89.4 - CHRONIC PAIN SYNDROME Status: Chronic (8) Dementia Code(s): F03.90 - UNSPECIFIED DEMENTIA WITHOUT BEHAVIORAL DISTURBANCE Status: Chronic (9) H/O sick sinus syndrome Code(s): Z86.79 - PERSONAL HISTORY OF OTHER DISEASES OF THE CIRCULATORY SYSTEM Status: Chronic (10) HLD (hyperlipidemia) Code(s): E78.5 - HYPERLIPIDEMIA, UNSPECIFIED Status: Chronic (11) HTN (hypertension) Code(s): I10 - ESSENTIAL (PRIMARY) HYPERTENSION Status: Chronic - Plan cont current plan of care * pacemaker interogation * monitor on tele * cardiology recommendation appreciated * medication reviewed as below * symptomatic treatment. * multaq started Review of Systems - Review of Systems ENT: negative: Ear Pain, Ear Discharge, Nose Pain, Nose Discharge, Nose Congestion, Mouth Pain, Mouth Swelling, Throat Pain, Throat Swelling, Other Respiratory: negative: Cough, Dry, Shortness of Breath, Hemoptysis, SOB with Excertion, Pleuritic Pain, Sputum, Wheezing Cardiovascular: negative: chest pain, palpitations, orthopnea, paroxysmal nocturnal dyspnea, edema, light headedness, other Gastrointestinal: negative: Nausea, Vomiting, Abdominal Pain, Diarrhea, Constipation, Melena, Hematochezia, Other Genitourinary: negative: Dysuria, Frequency, Incontinence, Hematuria, Retention , Other Musculoskeletal: negative: Neck Pain, Shoulder Pain, Arm Pain, Back Pain, Hand Pain, Leg Pain, Foot Pain, Other Skin: negative: Rash, Lesions, Charlie, Bruising, Other - Medications/Allergies Allergies/Adverse Reactions: Allergies Allergy/AdvReac Type Severity Reaction Status Date / Time propoxyphene Allergy Verified 05/13/18 02:44 valsartan Allergy Verified 05/13/18 02:44 Medications: Current Medications Acetaminophen (Tylenol) 650 mg PO Q4H PRN PRN Reason: Headache/Fever/Mild Pain (1-3) Last Admin: 09/27/18 12:36 Dose: 650 mg Artificial Tears (Tears Naturale) 2 drop EA EYE PRN PRN PRN Reason: Dry Eyes Aspirin (Aspirin Chewable) 81 mg PO DAILY ANMOL Last Admin: 09/27/18 08:00 Dose: 81 mg Bisacodyl (Dulcolax) 10 mg [place] DAILYPRN PRN PRN Reason: Constipation Bisacodyl (Dulcolax) 10 mg PO DAILYPRN PRN PRN Reason: Constipation Calcium Carbonate (Tums) 1,000 mg PO Q4H PRN PRN Reason: Heartburn or Indigestion [facility] Enoxaparin Sodium (Lovenox) 80 mg SC 0900,2100 [facility] Last Admin: 09/27/18 07:59 Dose: 80 mg Famotidine (Pepcid) 20 mg PO BID [facility] Last Admin: 09/27/18 08:00 Dose: 20 mg Gabapentin (Neurontin) 300 mg PO DAILY [facility] Last Admin: 09/27/18 08:00 Dose: 300 mg Guaifenesin (Robitussin Sf) 200 mg PO Q4H PRN PRN Reason: Cough Hydralazine HCl (Apresoline) 10 mg SLOW IVP Q4H PRN PRN Reason: SBP > 180 and HR < 70 Labetalol HCl (Normodyne) 20 mg SLOW IVP Q4H PRN PRN Reason: SBP > 180 and HR >/= 70 Lisinopril (Zestril) 20 mg PO DAILY [facility] Last Admin: 09/27/18 07:59 Dose: 20 mg Loperamide HCl (Imodium) 2 mg PO PRN PRN PRN Reason: Diarrhea/Loose Stools Loratadine (Claritin) 10 mg PO DAILYPRN PRN PRN Reason: Sinus Symptoms Memantine (Namenda) 5 mg PO DAILY [facility] Last Admin: 09/27/18 08:00 Dose: 5 mg Mineral Oil/White Petrolatum (Eucerin Cream) 0 gm TOP BIDPRN PRN PRN Reason: Dry Skin Nitroglycerin (Nitrostat) 0.4 mg SL Q5MIN PRN PRN Reason: Chest Pain Ondansetron HCl (Zofran Odt) 4 mg PO Q6H PRN PRN Reason: Nausea/Vomiting Ondansetron HCl (Zofran) 4 mg IVP Q6H PRN PRN Reason: Nausea/Vomiting Senna/Docusate Sodium (Senokot S) 2 tab PO BID PRN PRN Reason: Constipation Sodium Chloride ([place] Nasal [place] 0.65%) 0 ml EA NARE QIDPRN PRN PRN Reason: Nasal Congestion Sodium Chloride (Flush - Normal Saline) 10 ml IVF Q12HR ANMOL Last Admin: 09/27/18 08:00 Dose: 10 ml Sodium Chloride (Flush - Normal Saline) 10 ml IVF PRN PRN PRN Reason: Saline Flush Throat Lozenges (Cepastat Lozenges) 1 elizabeth PO Q2H PRN PRN Reason: Sore Throat Zolpidem Tartrate (Ambien) 5 mg PO HSPRN PRN PRN Reason: Insomnia
[2018-09-27] MEDS: Dronedarone HCl 400 MG TAB PO SCH (16:30)
[2018-09-27] MEDS: HYDROcodone/Acetaminophen 5/325 mg Tablet PO PRN ×2 (16:30→20:22)
[2018-09-28] MEDS: HYDROcodone/Acetaminophen 5/325 mg Tablet PO PRN (00:36)
[2018-09-28 06:16] VITALS: TEMP 98.4
[2018-09-28 07:37] VITALS: BP 134/64
[2018-09-28] MEDS: Enoxaparin Sodium 80 MG/0.8 ML SYRINGE SC SCH (08:51)
[2018-09-28] MEDS: Lisinopril 20 MG TAB PO SCH (08:52)
[2018-09-28] MEDS: Gabapentin 300 MG CAP PO SCH (08:52)
[2018-09-28] MEDS: Dronedarone HCl 400 MG TAB PO SCH (08:52)
[2018-09-28] MEDS: Aspirin Chewable 81 MG TAB PO SCH (08:52)
[2018-09-28] MEDS: Famotidine 20 MG TAB PO SCH (08:52)
--- NOTE | 2018-09-28 10:19 | DIS ---
DATE OF ADMISSION: 09/26/2018 DATE OF DISCHARGE: 09/28/2018 PRIMARY CARE PHYSICIAN: Dr. Nico Barton/Dr. Landry. DISCHARGE DISPOSITION: Home. PRIMARY DISCHARGE DIAGNOSES: 1. Atrial fibrillation with rapid ventricular response, controlled. 2. Demand ischemia of myocardium. SECONDARY DISCHARGE DIAGNOSES: 1. Hypertension. 2. Dyslipidemia. 3. History of sick sinus syndrome. 4. Dementia. 5. Chronic kidney disease stage 3. 6. Chronic pain disorder. 7. Coronary artery disease. 8. Osteoarthritis. 9. Normocytic normochromic anemia. 10. Obesity with BMI 30. PRIMARY PROCEDURE/OPERATION: None. RADIOLOGICAL INVESTIGATION: The patient had a chest x-ray at [facility], which was unremarkable. SIGNIFICANT LABORATORY DATA: WBC 6.9, hemoglobin 10, platelet 184. Sodium 140, potassium 4.9, BUN 28, creatinine 1.58, calcium 9.3. LFT normal. Cardiac enzyme showed indeterminate troponin. DISCHARGE MEDICATION: 1. Gabapentin 300 mg p.o. daily. 2. [place] 10 one tablet q.6 hourly p.r.n. 3. Lisinopril 20 mg daily. 4. Namenda 5 mg p.o. at bedtime. 5. Aspirin 81 mg daily. 6. Multaq 400 mg p.o. b.i.d. CONTRAINDICATION: None. CODE STATUS: Full code. INPATIENT DISTRIBUTION SUPERVISOR: Dr. Scott was consulted while in hospital. TEST RESULTS PENDING ON DISCHARGE: None. ALLERGIES: PROPOXYPHENE, VALSARTAN. DISCHARGE PLAN: Posthospital, the patient will follow up with Dr. Aldrich in one week. HOSPITAL COURSE: An 82-year-old female, who was admitted by me. Please see my HPI for further details. This patient went to [facility], where she was found with atrial fibrillation with RVR. She was transferred to our emergency room. She was treated with Cardizem drip. Cardiology was consulted. Her rate was under control. Cardiology started this admission Multaq 400 mg p.o. b.i.d., Toprol-XL was discontinued. This patient is not a good candidate for long-term anticoagulation and that is why she is only on aspirin therapy. This patient's rate is under control and she will follow up with Dr. Aldrich as an outpatient basis. All new medication prescription sent to her pharmacy. PHYSICAL EXAMINATION: The patient was seen and examined at bedside today. VITAL SIGNS: Currently, temperature 98.4, pulse 61, respiratory rate 16, saturation 98% on room air, blood pressure 134/64. Weight 177 pounds. GENERAL: The patient is currently alert, awake, no obvious acute distress. HEENT: Head; normocephalic, atraumatic. Eyes; pupils round, reactive to light. Extraocular muscle intact. ENT, oropharynx within normal limits. Moist mucous membranes. No oral lesion. No pharyngeal erythema. No exudate. NECK: Supple. No JVD. No thyromegaly. No carotid bruit. LUNGS: Clear to auscultation without any rhonchi or rales. CARDIAC: S1, S2 irregular without any significant murmur. ABDOMEN: Soft and benign. EXTREMITIES: No edema. NEUROLOGIC: Nonfocal examination. The patient is medically stable for discharge today. Job ID: [id number]
== END 2018-09-28 11:29 | disposition home or self-care (01) | DRG 309 ==
LOC: ERS 09:46 → 2NO 10:34 → ERS 13:06
PROVIDERS: ADMIT Internal Medicine; ATTEND Internal Medicine
PROC: 4B02XSZ Measurement of Cardiac Pacemaker, External Approach (ICD-10-PCS; principal; 2018-09-27)
DX: I48.0 Paroxysmal atrial fibrillation (principal); I50.32 Chronic diastolic (congestive) heart failure; I13.0 Hypertensive heart and chronic kidney disease with heart failure and stage 1 through stage 4 chronic kidney disease, or unspecified chronic kidney disease; I24.8 Other forms of acute ischemic heart disease; I25.10 Atherosclerotic heart disease of native coronary artery without angina pectoris; N18.3 Chronic kidney disease, stage 3 (moderate); E78.5 Hyperlipidemia, unspecified; M19.90 Unspecified osteoarthritis, unspecified site; G30.9 Alzheimer's disease, unspecified; F02.80 Dementia in other diseases classified elsewhere, unspecified severity, without behavioral disturbance, psychotic disturbance, mood disturbance, and anxiety; G89.29 Other chronic pain; R82.71 Bacteriuria; E66.9 Obesity, unspecified; Z68.30 Body mass index [BMI] 30.0-30.9, adult; I35.0 Nonrheumatic aortic (valve) stenosis; D64.9 Anemia, unspecified; Z79.899 Other long term (current) drug therapy; Z79.82 Long term (current) use of aspirin; Z95.1 Presence of aortocoronary bypass graft; Z95.0 Presence of cardiac pacemaker; Z88.8 Allergy status to other drugs, medicaments and biological substances
CPT/HCPCS: 36415; 80053; 85025; 99285; J1650